=== PATIENT | female | born 1960 ===

== ENCOUNTER 2018-10-16 09:39 | Outpatient (CLI) | payer OTHER | END 2018-10-16 09:56 | disposition home or self-care (01) | LOC: LAB 09:39 | DX: E55.9 Vitamin D deficiency, unspecified (principal); M85.88 Other specified disorders of bone density and structure, other site; E88.89 Other specified metabolic disorders; M81.8 Other osteoporosis without current pathological fracture; E56.1 Deficiency of vitamin K; G35 Multiple sclerosis; E03.8 Other specified hypothyroidism; N39.0 Urinary tract infection, site not specified; E53.8 Deficiency of other specified B group vitamins; E11.9 Type 2 diabetes mellitus without complications; E78.49 Other hyperlipidemia; E21.2 Other hyperparathyroidism ==

== ENCOUNTER 2020-09-28 09:49 | Outpatient (CLI) | payer OTHER | END 2020-09-28 10:19 | disposition home or self-care (01) | LOC: RAD 09:49 | PROVIDERS: ATTEND Orthopaedic Surgery | DX: M25.562 Pain in left knee (principal) ==